=== PATIENT | female | born 2000 | race Caucasian/White ===

== ENCOUNTER 2018-08-07 11:49 | Outpatient (CLI) | payer BC, SELFPAY ==
[2018-08-07 13:18] LABS: Abs Immature Grans 0.01 k/cumm (0.0-0.09); Absolute Basophil Count 0.01 k/cumm (0.0-0.2); Absolute Eosinophil Count 0.38 k/cumm (0.0-0.7); Absolute Lymphocyte Count 0.66 k/cumm (1.2-3.4); Absolute Monocyte Count 0.23 k/cumm (0.11-0.7); Absolute Neutrophil Count 4.89 k/cumm (1.2-6.7); Basophils % 0.2; Eosinophils % 6.1; HCT 40.6 % (36.0-46.0); HGB 13.4 g/dL (12.0-15.5); Immature Grans % 0.2; Lymphocytes % 10.7; Mean Corpuscular Hemoglobin 28.5 pg (27.0-33.0); Mean Corpuscular Volume 86.4 fL (80-95); Mean Platelet Volume 10.8 fL (8.0-11.0); Monocytes % 3.7; Neutrophils % 79.1; Platelet Count 304 x1000/uL (130-400); RBC Distribution Width 13.3 % (11.7-14.6); White Blood Cell Count 6.18 k/cumm (4.4-10.8)
[2018-08-08 12:14] LABS: Lyme Ab w Rflx to Lyme Confirm Negative
[2018-08-08 23:17] LABS: Anaplasma phagocytophilum Negative (Negative); B. miyamotoi PCR Negative (Negative); Babesia divergens/MO-1 Negative (Negative); Babesia duncani Negative (Negative); Babesia microti Negative (Negative); Ehrlichia chaffeensis Negative (Negative); Ehrlichia ewingii/canis Negative (Negative); Ehrlichia muris eauclairensis Negative (Negative)
[2018-08-09 12:23] LABS: Syphilis Serology (RPR) Negative (Negative)
== END 2018-08-07 12:09 ==
PROVIDERS: PCP Nurse Practitioner Family; Visit Provider Internal Medicine
DX: R21 Rash and other nonspecific skin eruption (principal); Z11.3 Encounter for screening for infections with a predominantly sexual mode of transmission; Z00.00 Encounter for general adult medical examination without abnormal findings
CPT/HCPCS: 36415; 85025; 86592; 86618; 87798

== ENCOUNTER 2018-10-05 14:46 | Outpatient (REF) | payer BC, SELFPAY ==
[2018-10-06 12:28] LABS: Chlamydia Result Negative; GC Result Negative; Specimen Description URINE
== END 2018-10-05 15:06 ==
LOC: LBN 14:46
PROVIDERS: PCP Nurse Practitioner Family; Visit Provider Nurse Practitioner Women's Health
DX: Z11.3 Encounter for screening for infections with a predominantly sexual mode of transmission (principal)
CPT/HCPCS: 87491; 87591

== ENCOUNTER 2018-11-09 09:53 | Outpatient (CLI) | payer BC, SELFPAY ==
[2018-11-09 11:39] LABS: Anion Gap 10.8 mmol/L (3-11); BUN 15 mg/dL (7-18); CO2 25.2 mmol/L (21.0-32.0); CREATININE 0.83 mg/dL (0.55-1.02); Calcium 9.5 mg/dL (8.5-10.1); Chloride 102 mmol/L (98-107); FREE T4 1.11 ng/dL (0.76-1.46); Glucose 85 mg/dL (70-100); Potassium 4.5 mmol/L (3.5-5.1); Sodium 138 mmol/L (136-145); TSH 1.68 uIU/mL (0.358-3.74)
[2018-11-09 12:02] LABS: Cholesterol 276 mg/dL (50-200); HDL Cholesterol 42 mg/dL (40-60); LDL CHOLESTEROL 196 mg/dL (<100); Triglyceride 92 mg/dL (30-150)
== END 2018-11-09 10:13 ==
PROVIDERS: PCP Nurse Practitioner Family; Visit Provider Nurse Practitioner Family
DX: Z00.00 Encounter for general adult medical examination without abnormal findings (principal); J45.20 Mild intermittent asthma, uncomplicated
CPT/HCPCS: 36415; 80048; 80061; 83721; 84439; 84443

== ENCOUNTER 2019-08-27 13:05 | Outpatient (CLI) | payer BC, SELFPAY ==
[2019-08-28 10:09] LABS: Hepatitis C Ab w Rflx HCV PCR Negative (Negative)
[2019-08-28 10:23] LABS: HIV-1/2 Ag & Ab Screen Negative (Negative)
[2019-08-29 10:55] LABS: Syphilis Total Ab w/Reflex Nonreactive (Nonreactive)
== END 2019-08-27 13:25 ==
PROVIDERS: PCP Nurse Practitioner Family; Visit Provider Nurse Practitioner Women's Health
DX: Z11.3 Encounter for screening for infections with a predominantly sexual mode of transmission (principal); Z11.4 Encounter for screening for human immunodeficiency virus [HIV]; Z11.59 Encounter for screening for other viral diseases
CPT/HCPCS: 36415; 86803; 87389; 86780

== ENCOUNTER 2019-08-27 18:03 | Outpatient (REF) | payer BC, SELFPAY ==
[2019-08-28 12:52] LABS: GC Result Negative (Negative)
[2019-08-28 14:24] LABS: Chlamydia Result Positive (Negative)
== END 2019-08-27 18:23 ==
LOC: LBN 18:03
PROVIDERS: PCP Nurse Practitioner Family; Visit Provider Nurse Practitioner Women's Health
DX: Z11.3 Encounter for screening for infections with a predominantly sexual mode of transmission (principal)
CPT/HCPCS: 87491; 87591

== ENCOUNTER 2019-10-08 13:44 | Outpatient (REF) | payer BC, SELFPAY ==
--- NOTE | 2019-10-08 13:20 | PAPFT_PTH ---
PATIENT: Nataliia Lott LOC: [facility] U#:[id number] AGE/SX: 19/F ROOM: RE10/08/[address]: Cristine Brand NP : 2000 BED: DIS: 10/08/2019 SPEC #: [id number] RECD: 10/08/19 18:20 STATUS: ADINA REJana #: [id number] LOLI: 10/08/19 13:[address]: Cristine Brand NP DEPT: [facility] Cytology RECD BY: Zeenat Davis ENTERED: 10/08/19 18:21 SP TYPE: PAPFT OTHR DR: Bernice Tomlinson, SPORTS UMPIRE Tissues: 1 - CX/ENDOCX FOR PAP SMEARS Procedures: PAP THIN PREP/[facility] Screening HPV DNA PROBE Comments: [id number] (CHLAMYDIA/GC)
[2019-10-09 12:55] LABS: Chlamydia Result Negative (Negative); GC Result Negative (Negative)
== END 2019-10-08 14:04 ==
LOC: LBN 13:44
PROVIDERS: PCP Nurse Practitioner Family; Visit Provider Nurse Practitioner Women's Health
DX: Z12.4 Encounter for screening for malignant neoplasm of cervix (principal); Z11.3 Encounter for screening for infections with a predominantly sexual mode of transmission
CPT/HCPCS: 87491; 87591; 88142; 87624

== ENCOUNTER 2019-11-20 14:52 | Outpatient (REF) | payer BC, SELFPAY ==
[2019-11-21 15:23] LABS: Chlamydia Result Negative (Negative); GC Result Negative (Negative)
== END 2019-11-20 15:12 ==
LOC: LBN 14:52
PROVIDERS: PCP Nurse Practitioner Family; Visit Provider Nurse Practitioner Women's Health
DX: Z11.3 Encounter for screening for infections with a predominantly sexual mode of transmission (principal)
CPT/HCPCS: 87491; 87591

== ENCOUNTER 2020-01-25 10:58 | Outpatient (REF) | payer BC, SELFPAY ==
[2020-01-28 16:44] LABS: Chlamydia Result Negative (Negative); GC Result Negative (Negative)
== END 2020-01-25 11:18 ==
LOC: LBN 10:58
PROVIDERS: PCP Nurse Practitioner Family; Visit Provider Nurse Practitioner Family
DX: Z11.3 Encounter for screening for infections with a predominantly sexual mode of transmission (principal)
CPT/HCPCS: 87491; 87591

== ENCOUNTER 2020-04-22 15:24 | Outpatient (REF) | payer BC, SELFPAY ==
[2020-04-23 15:07] LABS: Chlamydia Result Negative (Negative); GC Result Negative (Negative)
== END 2020-04-22 15:44 ==
LOC: LBN 15:24
PROVIDERS: PCP Nurse Practitioner Family; Visit Provider Nurse Practitioner Women's Health
DX: Z11.3 Encounter for screening for infections with a predominantly sexual mode of transmission (principal)
CPT/HCPCS: 87491; 87591

== ENCOUNTER 2020-11-17 16:26 | Outpatient (REF) | payer BC, SELFPAY ==
[2020-11-17 13:37] LABS: Anion Gap 8.2 mmol/L (3-11); BUN 16 mg/dL (7-18); CO2 24.8 mmol/L (21.0-32.0); CREATININE 0.9 mg/dL (0.55-1.02); Calculated LDL 121 mg/dL (<100); Chloride 106 mmol/L (98-107); Cholesterol 197 mg/dL (<200); Glucose 84 mg/dL (74-106); HDL Cholesterol 56 mg/dL (40-60); Potassium 4.4 mmol/L (3.5-5.1); Sodium 139 mmol/L (136-145); Triglyceride 101 mg/dL (<150)
== END 2020-11-17 16:27 | disposition home or self-care (01) ==
LOC: LBN 16:26
PROVIDERS: PCP Nurse Practitioner Family; Visit Provider Nurse Practitioner Family
DX: E78.5 Hyperlipidemia, unspecified (principal)
CPT/HCPCS: 80048; 80061

== ENCOUNTER 2020-12-23 15:56 | Outpatient (REF) | payer BC, SELFPAY ==
--- NOTE | 2020-12-23 15:30 | PAPFT_PTH ---
PATIENT: Nataliia Lott LOC: [facility] U#:[id number] AGE/SX: 20/F ROOM: RE12/23/[address]: Cristine Brand NP : 2000 BED: DIS: 12/23/2020 SPEC #: [id number] RECD: 12/23/20 18:18 STATUS: ADINA REJana #: [id number] LOLI: 12/23/20 15:[address]: Cathie JULIO,Cristine DEPT: [facility] Cytology RECD BY: Zeenat Davis ENTERED: 12/23/20 18:18 SP TYPE: PAPFT OTHR DR: Bernice Tomlinson, EDWIN Tissues: 1 - CX/ENDOCX FOR PAP SMEARS Procedures: PAP THIN PREP/[facility] Screening Comments: [id number] (CHLAMYDIA/GC) (UNSATISFACTORY FOR EVALUATION)
[2020-12-26 15:24] LABS: Chlamydia Result Negative (Negative); GC Result Negative (Negative)
== END 2020-12-23 15:57 | disposition home or self-care (01) ==
LOC: LBN 15:56
PROVIDERS: PCP Nurse Practitioner Family; Visit Provider Nurse Practitioner Women's Health
DX: Z12.4 Encounter for screening for malignant neoplasm of cervix (principal); Z87.42 Personal history of other diseases of the female genital tract; Z11.3 Encounter for screening for infections with a predominantly sexual mode of transmission; R87.615 Unsatisfactory cytologic smear of cervix
CPT/HCPCS: 87491; 87591; 88142

== ENCOUNTER 2021-01-30 10:51 | Outpatient (REF) | payer BC, SELFPAY ==
--- NOTE | 2021-01-30 10:30 | PAPFT_PTH ---
PATIENT: Nataliia Lott LOC: [facility] U#:[id number] AGE/SX: 20/F ROOM: RE01/30/[address]: EDWIN Augustin : 2000 BED: DIS: 01/30/2021 SPEC #: [id number] RECD: 01/30/21 13:15 STATUS: ADINA KRUEGER #: [id number] LOLI: 01/30/21 10:[address]: Laura Martinez DEPT: [facility] Cytology RECD BY: Zeenat Davis ENTERED: 01/30/21 13:16 SP TYPE: PAPFT ANDRY DR: EDWIN Quach Tissues: 1 - CX/ENDOCX FOR PAP SMEARS Procedures: PAP THIN PREP/[facility]VM Screening Comments: [id number]
== END 2021-01-30 10:52 | disposition home or self-care (01) ==
LOC: LBN 10:51
PROVIDERS: PCP Nurse Practitioner Family; Visit Provider Nurse Practitioner Family
DX: Z12.4 Encounter for screening for malignant neoplasm of cervix (principal); Z87.42 Personal history of other diseases of the female genital tract
CPT/HCPCS: 88142; 87624

== ENCOUNTER 2021-05-21 11:12 | Outpatient (REF) | payer BC, SELFPAY | END 2021-05-21 11:13 | disposition home or self-care (01) | LOC: LBN 11:12 | PROVIDERS: PCP Nurse Practitioner Family; Visit Provider Nurse Practitioner Family | DX: R30.0 Dysuria (principal) | CPT/HCPCS: 87077; 87086; 87186 ==

== ENCOUNTER 2022-05-05 10:02 | Outpatient (REF) | payer BC, SELFPAY ==
--- NOTE | 2022-05-05 09:50 | PAPFT_PTH ---
PATIENT: Nataliia Lott LOC: [facility] U#:[id number] AGE/SX: 21/F ROOM: RE05/05/[address]: Cristine Brand NP : 2000 BED: DIS: 05/05/2022 SPEC #: [id number] RECD: 05/05/22 13:06 STATUS: ADINA REJana #: [id number] LOLI: 05/05/22 09:[address]: Cristine Brand NP DEPT: [facility] Cytology RECD BY: Zeenat Davis ENTERED: 05/05/22 13:06 SP TYPE: PAPFT OTHR DR: EDWIN Quach Tissues: 1 - CX/ENDOCX FOR PAP SMEARS Procedures: PAP THIN PREP/[facility]VM Screening Comments: [id number]
== END 2022-05-05 10:03 | disposition home or self-care (01) ==
LOC: LBN 10:02
PROVIDERS: PCP Nurse Practitioner Family; Visit Provider Nurse Practitioner Women's Health
DX: Z87.42 Personal history of other diseases of the female genital tract; Z12.4 Encounter for screening for malignant neoplasm of cervix
CPT/HCPCS: 88142

== ENCOUNTER 2023-07-15 14:17 | Outpatient (REF) | payer BC, SELFPAY ==
[2023-07-19 13:32] LABS: Chlamydia Result Negative (Negative); GC Result Negative (Negative)
== END 2023-07-15 14:18 | disposition home or self-care (01) ==
LOC: LBN 14:17
PROVIDERS: PCP Nurse Practitioner Family; Visit Provider Advanced Practice Midwife
DX: Z11.3 Encounter for screening for infections with a predominantly sexual mode of transmission (principal)
CPT/HCPCS: 87491; 87591

== ENCOUNTER 2023-10-04 16:08 | Emergency (ER) | payer BC, SELFPAY ==
[2023-10-04 16:15] VITALS: BP 150/89; PULSE 123; RESP 18; TEMP 35.8; O2SAT 99
--- NOTE | 2023-10-04 16:22 | ED.GENADUL_ITS ---
Discharge Plan Discharge Details Chief Complaint: RespSymp Primary Care Provider: Bernice Tomlinson ED Provider: Vangie Liang Home Meds and New Rx's Prescriptions: No Action loratadine 10 mg capsule 10 mg PO DAILY Qty: 90 4RF albuterol sulfate [ProAir HFA] 90 mcg/actuation HFA aerosol inhaler 2 puff Inhalation .Q4-6H PRN (Reason: shortness of breath or wheezing) Qty: 18 4RF Kyleena 17.5 mcg/24 hrs (5 yrs) 19.5 mg intrauterine device 1 device intrauterine ONCE Rx Instructions: as a single dose HPI General Date/Time Provider Initiated Documentation: 10/04/23 16:13 . HPI Narrative: This 23-year-old female patient presents with a chief complaint of cough that she has had for 2 months. She says sometimes at night she coughs so hard it keeps her up. She does have a history of asthma and says she has been wheezing but when she makes that noise it sounds upper airway. She does say when she walks the wheezing increases. She denies fever or chills. She does have a little bit of a runny nose and congestion but says she has allergies and is always congested. She has no headache or persistent sore throat. There are no swollen glands. She has no stiff neck or rashes. There is no shortness of breath or difficulty breathing. She has no belly pain, nausea, vomiting, diarrhea, or dysuria. She has no pedal edema or calf pain. There is no weakness or dizziness. Related Data Home Medications Medication Instructions Recorded Confirmed loratadine 10 mg capsule 10 mg PO DAILY #90 caps 11/15/19 10/04/23 levonorgestrel 17.5 mcg/24 hrs 1 device intrauterine ONCE 08/04/20 10/04/23 (5yrs) 19.5mg intrauterine device (Kyleena) albuterol sulfate 90 mcg/actuation 2 puff inhalation .Q4-6H PRN 11/20/21 10/04/23 aerosol inhaler (ProAir HFA) shortness of breath or wheezing #18 grams Previous Rx's Medication Instructions Recorded loratadine 10 mg capsule 10 mg PO DAILY #90 caps 11/15/19 albuterol sulfate 90 mcg/actuation 2 puff inhalation .Q4-6H PRN 11/20/21 aerosol inhaler (ProAir HFA) shortness of breath or wheezing #18 grams Allergies Allergy/AdvReac Type Severity Reaction Status Date / Time No Known Drug Allergies Allergy Other (See Unverified 10/04/23 16:18 Comment) General Stated Complaint: RespSymp BRITNI: 3 Review of Systems Narrative: See HPI Exam Narrative Exam Narrative: General/constitutional: Awake and alert 23-year-old female in no apparent distress. She is obese. Skin: [place] warm and dry, no rashes HEENT: TMs clear bilaterally, oropharynx is clear with moist mucous membranes Neck: No lymphadenopathy; supple Coronary: Regular tachycardia with no murmur or rub Pulmonary: Clear to auscultation bilaterally with good air movement Abdomen: Obese Extremities: No bilateral lower extremity pedal edema or calf tenderness to palpation Neuro: Alert and oriented x 3, full range of motion of all arms and Back: Atraumatic Course Vital Signs Vital signs: Vital Signs Temperature 35.8 C L 10/04/23 16:15 Pulse 123 H 10/04/23 16:15 Respiratory Rate 18 10/04/23 16:15 Blood Pressure 150/89 H 10/04/23 16:15 Pulse Oximetry 99 10/04/23 16:15 Temperature 35.8 C L 10/04/23 16:15 Temperature Source Temporal Artery Scan 10/04/23 16:15 Pulse 123 H 10/04/23 16:15 Respiratory Rate 18 10/04/23 16:15 Blood Pressure 150/89 H 10/04/23 16:15 Pulse Oximetry 99 10/04/23 16:15 Medical Decision Making Note that patient was a little bit tachycardic on arrival. When I looked back through her old charts she is frequently tachycardic. She evidently was laughing with her friends when this was taken. She tells me that she is almost always tachycardic when she goes to see the doctor as she gets nervous. Patient was given albuterol with a spacer, which she requested, as well as prednisone. She will also use Mucinex DM as needed for her cough. We did have a discussion about bronchitis and how it is no longer considered standard of care to treat this with antibiotics. Lab Data Lab results reviewed: Yes I reviewed the patient's lab results. Lab results narrative: FLUVID was negative for flu, COVID, and RSV. Quality:[facility] Related Social Needs: No Data to Display PFSH All Active Problems Generalized anxiety disorder (Chronic) Mild intermittent asthma (Chronic) Obesity (Chronic) Hyperlipidemia (Chronic) IUD surveillance (Chronic 06/23/20) Kyleena inserted 06/23/20 Surgical History No significant past surgical history Family History Mother No problems noted. Father No problems noted. Brother No problems noted. Maternal Grandfather No problems noted. Maternal Grandmother Type 2 diabetes mellitus Paternal Grandfather , at 78 Parkinson's disease Paternal Grandmother No problems noted. Paternal Aunt Cervical cancer Social History Smoking/Tobacco Use Status: Never Second Hand Exposure: Yes Smoking risk assessment performed?: Yes Alcohol Intake: current Alcohol Intake frequency: a few times a month Alcohol type: beer Drug use: Never Substance use type: does not use Caregiver/Support person: No Household members: none Housing: house Communication Needs: None Do you need help understanding health information?: Never Pets and animals: Yes Pets and animals: cat(s) and dog(s) Sexually active: Yes Do you think of yourself as: straight/heterosexual Current gender identity: female How often do you talk on the phone with friends or family?: three or more times per week How often do you get together with friends or relatives?: twice per week How often do you attend caodaism or restorationist services?: decline to answer Do you belong to any clubs or organized social groups?: no Panel score (0-1 are the most socially isolated patients): 1 What type of physical activity do you participate in: none Frequency: does not exercise Melva/Episcopalian: No preference Special melva needs: No Seatbelt use: always Helmet use: Yes Helmet use: always Drive intox or ride w/intox powder truck driver: No Female Reproductive History Menstrual Duration of menses: 3-5 days control method: progestin IUCD (kyleena) History History 0 Para Hx # Term Pregnancies Multiple births Hx # Pregnancies Ectopic pregnancies AB induced Hx Number of Living Children AB spontaneous
[2023-10-04] MEDS: Albuterol HFA 8 GM 60 PUFF INH IH (16:56)
[2023-10-04] MEDS: predniSONE 20 MG TAB 60 MG PO (16:57)
[2023-10-04] MEDS: Inhaler, Assist Device 1 EACH MC (16:57)
[2023-10-04 17:05] LABS: COVID-19 PCR Negative (Negative); Influenza A PCR Negative (Negative); Influenza B PCR Negative (Negative); RSV PCR Negative (Negative)
[2023-10-04 17:07] LABS: Source Nasopharynx
== END 2023-10-04 17:48 | disposition home or self-care (01) ==
PROVIDERS: Emergency Provider Emergency Medicine; PCP Nurse Practitioner Family
DX: J45.909 Unspecified asthma, uncomplicated (principal); R05.1 Acute cough; R06.2 Wheezing
CPT/HCPCS: 87637; 99283; J7512

== ENCOUNTER 2024-07-16 15:11 | Outpatient (REF) | payer OTHER, SELFPAY ==
[2024-07-18 12:11] LABS: Chlamydia Result Negative (Negative); GC Result Negative (Negative)
== END 2024-07-16 15:12 | disposition home or self-care (01) ==
LOC: LBN 15:11
PROVIDERS: PCP Nurse Practitioner Family; Visit Provider Nurse Practitioner Women's Health
DX: Z11.3 Encounter for screening for infections with a predominantly sexual mode of transmission (principal); Z01.419 Encounter for gynecological examination (general) (routine) without abnormal findings
CPT/HCPCS: 87491; 87591

== ENCOUNTER 2025-07-12 01:31 | Outpatient (CLI) | payer OTHER, SELFPAY ==
[2025-07-12 07:57] LABS: Hemoglobin A1C 4.8 % (<5.7)
[2025-07-12 08:05] LABS: Anion Gap 10 mmol/L (3-11); BUN 12 mg/dL (9-23); CO2 25.0 mmol/L (20.0-31.0); Calcium 9.2 mg/dL (8.3-10.6); Chloride 106 mmol/L (98-107); Cholesterol 187 mg/dL (<200); Glucose 89 mg/dL (74-106); HDL Cholesterol 48 mg/dL (>40); Potassium 4.2 mmol/L (3.5-5.1); Sodium 141 mmol/L (136-145)
[2025-07-12 18:34] LABS: HBs Antibody, Quant <3.1 mIU/mL (See Note); Hepatitis B Surface Antigen Negative (Negative)
== END 2025-07-12 01:32 | disposition home or self-care (01) ==
PROVIDERS: PCP Nurse Practitioner Family; Visit Provider Nurse Practitioner Family
DX: E78.5 Hyperlipidemia, unspecified (principal); Z11.59 Encounter for screening for other viral diseases
CPT/HCPCS: 36415; 80048; 80061; 86704; 86706; 87340; 83036

== ENCOUNTER 2025-07-17 13:37 | Outpatient (REF) | payer OTHER, SELFPAY ==
--- NOTE | 2025-07-17 13:20 | PAPFT_PTH ---
PATIENT: Nataliia Lott LOC: [facility] U#:[id number] AGE/SX: 25/F ROOM: RE07/17/[address]: Cristine Brand NP : 2000 BED: DIS: 07/17/2025 SPEC #: [id number] RECD: 07/17/25 15:58 STATUS: ADINA KRUEGER #: [id number] LOLI: 07/17/25 13:[address]: Cathie JULIO,Cristine DEPT: [facility] Cytology RECD BY: Zeenat Davis ENTERED: 07/17/25 15:59 SP TYPE: PAPFT OTHR DR: Bernice Tomlinson, PHYSICIAN/ALLERGY/IMMUNOLOGY Tissues: 1 - CX/ENDOCX FOR PAP SMEARS Procedures: PAP THIN PREP/[facility] Screening Comments: [id number] (CHLAMYDIA/GC)
[2025-07-18 13:50] LABS: Chlamydia Result Negative (Negative); GC Result Negative (Negative)
== END 2025-07-17 13:38 | disposition home or self-care (01) ==
LOC: LBN 13:37
PROVIDERS: PCP Nurse Practitioner Family; Visit Provider Nurse Practitioner Women's Health
DX: Z12.4 Encounter for screening for malignant neoplasm of cervix (principal)
CPT/HCPCS: 87491; 87591; 88142